=== PATIENT | female | born 1995 | race African-American/Black ===

== ENCOUNTER 2025-11-13 16:51 | Observation (INO) ==
--- NOTE | 2025-11-13 17:15 | ED.PDOC ---
General [facility] ED Provider: Dr. RADHA MATT MD Chief Complaint: Abscess Stated Complaint: Abdominal wall pain. Time Seen by Provider: 11/13/25 17:06 Mode of Arrival: Walk-In Information Source: Patient Exam Limitations: No limitations Nursing and Triage Documentation Reviewed and Agree: Yes Opioid Naive vs. Tolerant What is Opioid Naive?: *Opioid Naive implies the patient is not already taking opioids or not chronically receiving opioids on a daily basis. *PRN dosing is not "usually" associated with tolerance. *Patients are at higher risk of over-sedation and aspiration. What is Opioid Tolerant?: *Opioid Tolerance implies less than the expected response to an opioid. *Acquired tolerance is defined by the patient taking 60mg of oral morphine daily (or equianalgesic dose of another opioid) for 1 week or more. *Often associated with chronic pain. *May take more than usual dose to achieve desired pain control. Skin Complaint Exam Picture Picture: Patient is a 30-year-old female with past medical history of morbid obesity, hypertension and type 2 diabetes who presents with complaint of abdominal wall pain. The patient states that she had a lesion there for couple of weeks now but for the past 3 days its hurting and last night it was draining. Patient denies any fever or chills. The patient states that the pain is about a 10 on a pain scale. Patient denies any nausea, vomiting, diarrhea. On arrival patient's blood pressures are 246/135. Patient denies any headache, dizziness, chest pain or shortness of breath. Patient has been out of her blood pressure medications for at least a month. Patient takes amlodipine 10 mg and nifedipine 60 mg. Review of Systems Review Of Systems Constitutional: Reports No symptoms Eyes: Reports No symptoms Ears, Nose, Mouth, Throat: Reports No symptoms Respiratory: Reports No symptoms Cardiac: Reports No symptoms GI: Reports No symptoms : Reports No symptoms Musculoskeletal: Reports No symptoms Skin: Reports Lesions (Left anterior abdominal wall painful swelling.) Neurological: Reports No symptoms Endocrine: Reports No symptoms Hematologic/Lymphatic: Reports No symptoms All Other Systems: Reviewed and Negative [facility] Medical History (Updated 11/13/25 @ 23:50 by SIXTO MCCLURE RN) Diabetes E11.9 - Type 2 diabetes mellitus without complications (ICD-10) Bronchitis J40 - Bronchitis, not specified as acute or chronic (ICD-10) Hypertension I10 - Essential (primary) hypertension (ICD-10) Family History (Updated 11/13/25 @ 23:51 by SIXTO MCCLURE RN) Mother Cervical cancer Diabetes Hypertension FATHER Cancer Social History (Updated 11/13/25 @ 23:53 by SIXTO MCCLURE RN) Smoking and tobacco status: Former smoker Smoking status stop date: 10/13/25 Alcohol intake: current Alcohol intake frequency: holidays/special occasions only Substance use type: does not use Surgical History (Updated 11/13/25 @ 23:50 by SIXTO MCCLURE RN) History of bilateral fallopian tube excision Z90.79 - Acquired absence of other genital organ(s) (ICD-10) History of skin 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 (ICD-10) History of section Z98.891 - History of uterine scar from previous surgery (ICD-10) Female Reproductive History Menstrual Hx Hysterectomy: No Hx Tubal Ligation: Yes Physical Exam Physical Exam Appearance: Reports Well-appearing, Well-nourished and Obese Ill-appearing: None Pain Distress: Mild Eyes: Reports SONIA, EOMI, Conjunctiva clear and Conjunctiva inflammed ENT: Reports Ears normal, Nose normal and Oropharynx normal Neck: Supple Respiratory: Reports Airway patent, Breath sounds clear and Breath sounds equal; Denies Wheezes or Retractions Cardiovascular: Reports RRR and Pulses normal GI/: Reports Soft, Bowel sounds normal and Tender (Over the left lower quadrant. There is the superficial skin abscess.) Musculoskeletal: Reports Normal strength, ROM intact, No edema and No calf tenderness Skin: Reports Other (There is a 3 x 1.5 cm oval-shaped fluctuant tender lesion in the left anterior abdomen, inferior lateral to the umbilicus. The lesion is raised and tender. The surrounding skin is indurated and erythematous.) Neurological: Reports Sensation intact, Motor intact, Reflexes intact, Cranial nerves intact, Alert, Oriented and Alert to verbal; Denies Unresponsive, Abnormal reflexes, Focal Deficit or CN Palsy Psychiatric: Reports Mood appropriate and Depressed Procedures Incision and Drainage Site: Left anterior abdominal wall, lateral and inferior to the umbilicus Instrument Used: 11 Blade I & D Procedure: Yes Betadine Prep and Sterile dressing applied; No Packing placed Lidocaine Used: Yes Type of Drainage: Present Pus Irrigated: No Was Culture Obtained?: Yes Progress: After cleaning the area with Betadine, under sterile conditions a stab incision was made over the abscess where there was already a small opening. About 4 cc of pus drained. Cultures were sent. Bleeding is well-controlled. Patient tolerated the procedure well and there were no complications. Critical Care Note Critical Care Note Total Critical Care Time (mins): 37 Course Course 11/13/25 17:37 11/13/25 17:37 Orders, Labs, Meds: Lab Review 11/13/25 11/13/25 17:37 18:43 WBC 8.81 RBC 4.40 Hgb 6.6 L* Hct 27.4 L MCV 62.3 L MCH 15.0 L MCHC 24.1 L RDW Coeff of Sushma 20.5 H Plt Count 279 Immature Gran % (Auto) 0.3 Neut % (Auto) 70.7 Lymph % (Auto) 20.5 [place] % (Auto) 6.0 Eos % (Auto) 1.7 Baso % (Auto) 0.8 Reticulocyte % (Auto) 2.11 Neut # (Auto) 6.2 Lymph # (Auto) 1.8 [place] # (Auto) 0.5 Eos # (Auto) 0.2 Baso # (Auto) 0.1 Immature Gran # (Auto) 0.0 Hypochromasia 2+ Anisocytosis 2+ Microcytosis 2+ Absolute Retic 0.0926 Retic Hgb Equivalent 16.2 Sodium 138.2 Potassium 3.88 Chloride 105.5 Carbon Dioxide 24.9 Anion Gap 11.68 BUN 7.7 Creatinine 0.60 Estimated GFR (MDRD) 141.00 BUN/Creatinine Ratio 12.83 Glucose 118.9 H Lactic Acid 0.68 L Calcium 8.93 Iron 18.4 L TIBC 458 % Saturation 4 Ferritin 4.21 L Total Bilirubin 0.27 AST 21.9 ALT 11.8 Alkaline Phosphatase 63.2 Total Protein 7.32 Albumin 3.98 Globulin 3.34 Albumin/Globulin Ratio 1.19 Vitamin B12 289 Folate 6.79 Blood Type AB POSITIVE AB POSITIVE Antibody Screen Negative Crossmatch (AHG) See Detail Orders Category Date Time Status ADMIT OBSERVATION [PLACE PATIENT OBSERVATION] .TO ADMISSION 11/13/25 21:59 Active MEDSURG (MONITORED BED) NPO REMINDER: IMAGING ONCE CARE 11/13/25 19:08 Completed TELEMETRY MONITORING TELE CARE 11/13/25 22:00 Active CBC W/ AUTO DIFF Stat LAB 11/13/25 17:37 Completed CMP [COMPREHENSIVE METABOLIC PANEL] Stat LAB 11/13/25 17:37 Completed CULTURE WOUND [WOUND CULTURE] Stat LAB 11/13/25 17:26 Received FERRITIN Routine LAB 11/13/25 17:37 Completed FOLATE Urgent LAB 11/13/25 17:37 Completed IRON AND TIBC Routine LAB 11/13/25 17:37 Completed LACTIC ACID Stat LAB 11/13/25 17:37 Completed OCCULT BLOOD, STOOL Stat LAB 11/13/25 21:45 Uncollected RBC MORPHOLOGY Stat LAB 11/13/25 17:37 Completed RETIC COUNT Routine LAB 11/13/25 17:37 Completed TYPE AND SCREEN Stat LAB 11/13/25 18:43 Completed VITAMIN B12 Urgent LAB 11/13/25 17:37 Completed Amlodipine Besylate [Norvasc] Meds 11/13/25 17:27 Discontinued 10 mg PO ONCE STA Clonidine HCl [Catapres] Meds 11/13/25 17:15 Discontinued 0.2 mg PO ONCE ONE Iohexol [Omnipaque 350 mg/ml 100Ml] Meds 11/13/25 19:22 Discontinued 100 ml IVP ONCE ONE Ketorolac Tromethamine [Toradol] Meds 11/13/25 21:06 Discontinued 30 mg IVP ONCE STA Lidocaine HCl Inj [Lidocaine 2% 20 ml Mdv] Meds 11/13/25 21:20 Discontinued 20 ml INJ ONCE STA Nifedipine [Procardia Xl] Meds 11/13/25 21:23 Discontinued 60 mg PO ONCE STA CT ABDOMEN/PELVIS W CONTRAST Stat RADS 11/13/25 19:07 Completed Medications Generic Name Dose Route Start Last Admin Trade Name Freq PRN Reason Stop Dose Admin Ferrous Sulfate 324 mg 11/14/25 09:00 Ferrous Sulfate 324 Mg Tablet. PO BID ÁNGELA Cefazolin Sodium/Dextrose 2 gm in 50 mls @ 75 mls/hr 11/13/25 22:10 11/14/25 00:44 Ancef 2 Gm/50 Ml Premix IV 11/16/25 22:09 75 mls/hr Q8HR ÁNGELA Administration Sodium Chloride 1 syr 11/14/25 05:00 11/14/25 05:31 0.9% Sodium Chloride 10 Ml Disp.Syrin IVF Not Given Q8HR ÁNGELA Discontinued Medications Generic Name Dose Route Start Last Admin Trade Name Freq PRN Reason Stop Dose Admin Amlodipine Besylate 10 mg 11/13/25 17:27 11/13/25 17:29 Amlodipine Besylate 5 Mg Tablet PO 11/13/25 17:28 10 mg ONCE STA Administration Clonidine 0.2 mg 11/13/25 17:15 11/13/25 17:24 Clonidine Hcl 0.1 Mg Tablet PO 11/13/25 17:16 0.2 mg ONCE ONE Administration Clindamycin Phosphate 600 mg in 50 mls @ 75 mls/hr 11/13/25 22:20 11/14/25 00:00 Cleocin 600 Mg/50 Ml D5w IV 11/13/25 22:59 75 mls/hr ONCE ONE Administration Iohexol 100 ml 11/13/25 19:22 Iohexol 350 Mg/Ml 100ml IVP 11/13/25 19:23 ONCE ONE Ketorolac Tromethamine 30 mg 11/13/25 21:06 11/13/25 21:28 Ketorolac Tromethamine 30 Mg/Ml Vial IVP 11/13/25 21:07 30 mg ONCE STA Administration Lidocaine HCl 20 ml 11/13/25 21:20 11/13/25 21:28 Lidocaine 2% 20 Ml Mdv INJ 11/13/25 21:21 20 ml ONCE STA Administration Nifedipine 60 mg 11/13/25 21:23 11/13/25 21:30 Nifedipine 30 Mg Tab.Er.24 PO 11/13/25 21:24 60 mg ONCE STA Administration Vital Signs: Temp Pulse Resp BP Pulse Ox 11/13/25 17:01 97.4 F L 96 20 246/135 H 100 Differential diagnosis include but not limited to cellulitis, abscess, sebaceous cyst, contact dermatitis, hernia, allergic reaction. ER course: Patient is a 30-year-old female who presented with complaint of left lower abdominal wall pain. On examination patient was found to have an abscess with surrounding cellulitis. Patient was also found to have elevated blood pressures most likely from her not taking her blood pressure medications. But patient did not have any neurological symptoms or any other symptomatic symptoms from the elevated blood pressures. Patient was administered clonidine 0.2 and amlodipine 10 mg and her blood pressures improved. A CT scan of abdomen and pelvis was done which showed superficial abscess. Bedside I&D was done, cultures were sent. Approximately 4 ml of pus was drained. Patient tolerated the procedure well and there were no complications. Please look at the procedure notes for the details. The patient was also administered clindamycin. Discussed the case with YAZMIN Quijano and the patient was admitted to the hospitalist. Discharge Plan Discharge Patient Disposition: PLACED OBSERVATION Discharge Problem: Uncontrolled hypertension, Cellulitis of left abdominal wall, Abdominal wall abscess Anemia Qualifiers: Anemia type: unspecified type Qualified Code(s): D64.9 - Anemia, unspecified Did you review [place] [employer] for ALL controlled substances?: Not Applicable ED Provider: RADHA MATT Condition: Stable
[2025-11-13] MEDS: CATAPRES PO ONE (17:24)
[2025-11-13] MEDS: NORVASC PO STA (17:29)
[2025-11-13 17:44] LABS: IMMATURE GRANULOCYTE # (AUTO) 0.0 (0.0-1.0); IMMATURE GRANULOCYTE % (AUTO) 0.3 % (0.0-5.0); RDW COEFFICIENT OF VARIATION 20.5 % (11.6-14.8)
[2025-11-13 18:08] LABS: CREATININE 0.6 mg/dL (0.60-1.30)
[2025-11-13] MEDS ORDERED: OMNIPAQUE 350 MG/ML 100ML IVP ONE (19:22)
--- NOTE | 2025-11-13 20:09 | CT ---
CT ABDOMEN AND PELVIS WITH CONTRAST INDICATION: 30-year-old female patient with abdominal wall abscess COMPARISON: None TECHNIQUE: Axial CT from the lung bases to the proximal femurs following intravenous contrast administration. Coronal and sagittal reformatted images were performed. One or more of the following dose reduction techniques were used: Automated exposure control, adjustment of the mA and/or kV according to patient size, use of iterative reconstruction technique. IV Contrast: Administered. Oral Contrast: None. FINDINGS: Hepatomegaly measuring 19.4 cm CC. Lung bases are clear. Cardiac size is within normal limits. No pericardial or pleural effusions. Gallbladder biliary tract are normal. No focal hepatic lesion. Spleen pancreas adrenal glands are normal. No large renal parenchymal abnormalities. No nephrolithiasis. No hydroureteronephrosis. Trace water attenuation fluid in the pelvis likely physiologic. No pneumoperitoneum. The appendix is normal. No small or large bowel obstruction. Portal vein is patent. Celiac trunk superior mesenteric artery main renal arteries inferior mesenteric artery opacify with contrast. No lymphadenopathy. The bones are intact. IMPRESSION: No [id number] process. All CT scans are performed using dose optimization techniques as appropriate to the performed exam and include at least one of the following: Automated exposure control, adjustment of the mA and/or kV according to size, and the use of iterative reconstruction technique.
[2025-11-13] MEDS: TORADOL IVP STA (21:28)
[2025-11-13] MEDS: LIDOCAINE 2% 20 ML MDV INJ STA (21:28)
[2025-11-13] MEDS: PROCARDIA XL PO STA (21:30)
[2025-11-13 21:54] LABS: ABSOLUTE RETICS # 0.0926; RETICULOCYTE % 2.11 %; RETICULOCYTE HEMOGLOBIN 16.2
[2025-11-13 22:07] LABS: % IRON SATURATION 4.0 %
[2025-11-13 23:38] VITALS: BMI 52.2
[2025-11-14] MEDS: CLEOCIN 600 MG/50 ML D5W 600 MG/50 ML BAG IV ONE
[2025-11-14] MEDS: ANCEF 2 GM/50 ML PREMIX 2 GM/50 ML BAG IV SCH (00:44)
[2025-11-14 07:58] VITALS: RESP 18
[2025-11-14] MEDS ORDERED: ZOFRAN SDV IVP PRN (08:32)
[2025-11-14] MEDS: FERROUS SULFATE PO SCH (08:52)
[2025-11-14] MEDS: PROCARDIA XL PO SCH (08:52)
[2025-11-14] MEDS: TYLENOL PO PRN (08:52)
[2025-11-14] MEDS: NORVASC PO SCH (08:52)
[2025-11-14 09:01] LABS: IMMATURE GRANULOCYTE # (AUTO) 0.0 (0.0-1.0); IMMATURE GRANULOCYTE % (AUTO) 0.2 % (0.0-5.0); RDW COEFFICIENT OF VARIATION 26.0 % (11.6-14.8)
[2025-11-14 09:09] LABS: CREATININE 0.6 mg/dL (0.60-1.30)
[2025-11-14 09:58] VITALS: BP 160/102; PULSE 94; TEMP 97.4
--- NOTE | 2025-11-14 11:19 | PCM.SS ---
Provider Provider: CAYLA WOLFE PA-C, [facility] Admission Date Admission Date: 11/13/25 Discharge Date Discharge Date: 11/14/25 Chief Complaint Reason For Visit: ANEMIA CELLULITIS AND ABSESS OF AUTERIOR ABD WALL History of Present Illness History of Present Illness: Admitted 11/13/25 22:04, this 30 year old AA/BLACK/F with past medical history of hypertension who presents to the ER with left lower abdominal abscess. Patient states the same area has become inflamed and flared up over the the last several months. It gets better and then it comes back. It has opened up and drained. CT abdomen pelvis was negative for any acute findings in regards to cellulitis or abscess. ER provider did I&D at with some drainage expressed. She was also noted to have hemoglobin of 6.6. She states she is unaware of having anemia this bad. She has not had a child in 5 years. She does have very heavy periods that last about 2 weeks each. She is not currently on any control. She denies any bloody stools. Patient given 2 units of packed RBCs overnight. Admitted to [facility]. Repeat labs this morning show improved hemoglobin at 9.5. Patient is feeling better. Iron level is low at 18. Will start iron supplementation, discussed that can cause constipation. Advised that she needs to follow-up with [facility] as soon as possible to discuss her options in regards to control. She states that she has been on the Depo shot in the past. Discussed that she may be a candidate for an ablation as well if her periods are severe enough to be causing her acute anemia. The area of her left lower abdomen is improved. No induration or significant drainage. Culture showing no growth so far. She denies a history of MRSA. She denies any history of other lesions in her groin or armpits. Blood pressure is improved and she states she has been out of her medications in regards to that. She has amlodipine and nifedipine on her list. Will discharge home on doxycycline for 7 days and refill her amlodipine to restart. Will also give her a prescription for iron supplement. Follow-up with PCP. Patient agrees to plan of care. [facility] Medical History Diabetes E11.9 - Type 2 diabetes mellitus without complications (ICD-10) Bronchitis J40 - Bronchitis, not specified as acute or chronic (ICD-10) Hypertension I10 - Essential (primary) hypertension (ICD-10) Surgical History History of bilateral fallopian tube excision Z90.79 - Acquired absence of other genital organ(s) (ICD-10) History of skin 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 (ICD-10) History of section Z98.891 - History of uterine scar from previous surgery (ICD-10) Family History Mother Cervical cancer Diabetes Hypertension FATHER Cancer Social History Smoking and tobacco status: Former smoker Smoking status stop date: 10/13/25 Alcohol intake: current Alcohol intake frequency: holidays/special occasions only Substance use type: does not use Medications Mecications: Medications at Discharge (Home Meds & RX) amlodipine 10 mg tablet (Norvasc) 10 mg PO DAILY 11/13/25 dulaglutide 4.5 mg/0.5 mL subcutaneous pen injector (Trulicity) 4.5 mg subcut WEEKLY 11/13/25 nifedipine 60 mg tablet,extended release 60 mg PO DAILY 11/13/25 Allergies Allergies Allergy/AdvReac Type Severity Reaction Status Date / Time No Known Allergies Allergy Verified 11/13/25 17:04 Review of Systems Constitutional: Denies Fever Head: Reports Normocephalic and Atraumatic Cardiovascular: Denies Chest pain, Chest Pressure or Edema Respiratory: Denies Cough or Shortness of air Gastrointestinal: Reports Abdominal pain; Denies Nausea, Vomiting, Diarrhea, He matemesis, Hematochezia, Black Tarry Stools or Melena Genitourinary: Denies Dysuria or Frequency Dermatologic: Reports Other (+ABSCESS TO LEFT LOWER ABD) Physical Examination Appearance: Positive No Apparent Distress, Alert and Oriented x3 and Obese Head: Positive Normocephalic and Atraumatic Neck: Positive Supple and Trachea Midline Heart: Positive RRR Respiratory: Positive Breath Sounds Clear, Bilaterally, Breath Sounds Equal and Respirations Nonlabored; Negative Crackles, Rhonchi or Wheezes GI/: Positive Soft, Nontender, Bowel sounds normal and No Distention Extremities: Negative Edema Neurological: Positive Cranial nerves intact, Alert and Oriented Psychiatric: Positive Normal Judgement, Normal Insight, Affect Appropriate and Mood Appropriate Additional Findings: LEFT LOWER ABD - SMALL OPEN AREA, MINIMAL DRAINAGE, MINIMAL ERYTHEMA SURROUNDING IT, NO INDURATION OR FLUCTUANCE. Vital Signs (Last 4 Hours) Vital Signs Last 4 Hours: Vital Signs: Last 4 Hours 11/14/25 07:40 11/14/25 08:00 11/14/25 08:33 Temperature 97.6 F 97.6 F Temperature Source Pulse Rate 96 93 Respiratory Rate 18 18 Blood Pressure 170/120 H 173/118 H Blood Pressure Mean 136 136 Blood Pressure Location Blood Pressure Position O2 Sat by Pulse Oximetry Oxygen Delivery Method Room Air 11/14/25 09:00 11/14/25 09:58 11/14/25 09:58 Temperature 97.4 F L Temperature Source Temporal Artery Scan Pulse Rate 94 Respiratory Rate Blood Pressure 160/102 H Blood Pressure Mean 121 Blood Pressure Location Left Arm Blood Pressure Position Supine O2 Sat by Pulse Oximetry 99 Oxygen Delivery Method Room Air Room Air Room Air 11/14/25 11:00 Temperature Temperature Source Pulse Rate Respiratory Rate Blood Pressure Blood Pressure Mean Blood Pressure Location Blood Pressure Position O2 Sat by Pulse Oximetry Oxygen Delivery Method Room Air Labs This Visit Labs This Visit: Labs This Visit 11/13/25 11/13/25 11/14/25 17:37 18:43 08:50 WBC 8.81 RBC 4.40 Hgb 6.6 L* Hct 27.4 L MCV 62.3 L MCH 15.0 L MCHC 24.1 L RDW Coeff of Sushma 20.5 H Plt Count 279 Immature Gran % (Auto) 0.3 Neut % (Auto) 70.7 Lymph % (Auto) 20.5 [place] % (Auto) 6.0 Eos % (Auto) 1.7 Baso % (Auto) 0.8 Reticulocyte % (Auto) 2.11 Neut # (Auto) 6.2 Lymph # (Auto) 1.8 [place] # (Auto) 0.5 Eos # (Auto) 0.2 Baso # (Auto) 0.1 Immature Gran # (Auto) 0.0 Plt Morphology Comment Hypochromasia 2+ Poikilocytosis Anisocytosis 2+ Microcytosis 2+ Absolute Retic 0.0926 Retic Hgb Equivalent 16.2 Sodium 138.2 Potassium 3.88 Chloride 105.5 Carbon Dioxide 24.9 Anion Gap 11.68 BUN 7.7 Creatinine 0.60 Estimated GFR (MDRD) 141.00 BUN/Creatinine Ratio 12.83 Glucose 118.9 H Hemoglobin A1c 5.96 Lactic Acid 0.68 L Calcium 8.93 Iron 18.4 L TIBC 458 % Saturation 4 Ferritin 4.21 L Total Bilirubin 0.27 AST 21.9 ALT 11.8 Alkaline Phosphatase 63.2 Total Protein 7.32 Albumin 3.98 Globulin 3.34 Albumin/Globulin Ratio 1.19 Vitamin B12 289 Folate 6.79 Blood Type AB POSITIVE AB POSITIVE Antibody Screen Negative Crossmatch ([facility]) See Detail 11/14/25 08:55 WBC 8.09 RBC 5.06 Hgb 9.5 L Hct 32.7 L MCV 64.6 L MCH 18.8 L MCHC 29.1 L D RDW Coeff of Sushma 26.0 H Plt Count 236 Immature Gran % (Auto) 0.2 Neut % (Auto) 69.6 Lymph % (Auto) 21.5 [place] % (Auto) 5.8 Eos % (Auto) 2.7 Baso % (Auto) 0.2 Reticulocyte % (Auto) Neut # (Auto) 5.6 Lymph # (Auto) 1.7 [place] # (Auto) 0.5 Eos # (Auto) 0.2 Baso # (Auto) 0.0 Immature Gran # (Auto) 0.0 Plt Morphology Comment Hypochromasia 2+ Poikilocytosis 2+ Anisocytosis 3+ Microcytosis 3+ Absolute Retic Retic Hgb Equivalent Sodium 135.1 Potassium 4.13 Chloride 100.2 Carbon Dioxide 25.8 Anion Gap 13.23 BUN 8.2 Creatinine 0.60 Estimated GFR (MDRD) 141.00 BUN/Creatinine Ratio 13.66 Glucose 206.9 H D Hemoglobin A1c Lactic Acid Calcium 9.38 Iron TIBC % Saturation Ferritin Total Bilirubin 0.44 AST 24.1 ALT 13.4 Alkaline Phosphatase 63.7 Total Protein 7.63 Albumin 4.12 Globulin 3.51 Albumin/Globulin Ratio 1.17 Vitamin B12 Folate Blood Type Antibody Screen Crossmatch ([facility]) Microbiology This Visit 11/13/25 17:26 Abdomen Wound Culture - Preliminary Imaging Imaging: CT ABDOMEN AND PELVIS WITH CONTRAST INDICATION: 30-year-old female patient with abdominal wall abscess COMPARISON: None TECHNIQUE: Axial CT from the lung bases to the proximal femurs following intravenous contrast administration. Coronal and sagittal reformatted images were performed. One or more of the following dose reduction techniques were used: Automated exposure control, adjustment of the mA and/or kV according to patient size, use of iterative reconstruction technique. IV Contrast: Administered. Oral Contrast: None. FINDINGS: Hepatomegaly measuring 19.4 cm CC. Lung bases are clear. Cardiac size is within normal limits. No pericardial or pleural effusions. Gallbladder biliary tract are normal. No focal hepatic lesion. Spleen pancreas adrenal glands are normal. No large renal parenchymal abnormalities. No nephrolithiasis. No hydroureteronephrosis. Trace water attenuation fluid in the pelvis likely physiologic. No pneumoperitoneum. The appendix is normal. No small or large bowel obstruction. Portal vein is patent. Celiac trunk superior mesenteric artery main renal arteries inferior mesenteric artery opacify with contrast. No lymphadenopathy. The bones are intact. IMPRESSION: No [id number] process. Review Review Statement: I have independently reviewed and interpreted the labs/EKGs/imaging that were ordered by the ER provider. I have reviewed all outside records that are available currently in our EMR including imaging/notes/labs from previous visits. Plan Reccomendations/Plan: 1. Acute anemia - iron low, reports heavy periods that last 2 weeks each month, discussed f/u with pcp and/or obgyn to discuss treatment options 2. Lower abdominal abscess with mild cellulitis - culture showing no growth. No hx of MRSA to her knowledge. Cefazolin orderd. Will dc on doxy. 3. Hypertension, uncontrolled, chronic - Pt has been out of her home meds, will restart amlodipine Repeat labs this morning show improved hemoglobin at 9.5. Patient is feeling better. Iron level is low at 18. Will start iron supplementation, discussed that can cause constipation. Advised that she needs to follow-up with [facility] [employer] as soon as possible to discuss her options in regards to control. She states that she has been on the Depo shot in the past. Discussed that she may be a candidate for an ablation as well if her periods are severe enough to be causing her acute anemia. The area of her left lower abdomen is improved. No induration or significant drainage. Culture showing no growth so far. She denies a history of MRSA. She denies any history of other lesions in her groin or armpits. Blood pressure is improved and she states she has been out of her medications in regards to that. She has amlodipine and nifedipine on her list. Will discharge home on doxycycline for 7 days and refill her amlodipine to restart. Will also give her a prescription for iron supplement. Follow-up with PCP. Patient agrees to plan of care. 1. Acute iron deficiency anemia 2. Lower abdominal abscess with mild cellulitis, improved 3. Hypertension, improved Additional Planning: Case discussed with ED Physician, Dr. Garvey. DVT Prophylaxis: Ambulation [facility] Plannin minutes spent discussing advance care planning. Admit to: Obs Discussed Plan of Care with Dr. Ashok Epps. Review With Patient Reviewed with Patient and Family: Patient and family have been counseled on condition and care plan and have no immediate questions. I have personally discussed and reviewed the patient's visit/current labs/imaging/decision making with Dr. Ashok Epps, my supervising attending. Total number of minutes spent with patient [85] min. More than 50% of the time spent with this patient was devoted to counseling and coordination of care. Time of Admission:11/13/25 22:04 Time of Discharge: 11/14/25 0845 Discharge Plan Discharge Discharge Orders: Discharge Patient (ONCE); Ordered 11/14/25 Ordered By: CAYLA WOLFE Activity Restrictions/Additional Instructions: DISCHARGE TO HOME FOLLOW UP WITH A PCP AND OBGYN FOR MENSTRUAL BLEEDING PHARMACY: [facility], TAKE IRON SUPPLEMENT IRON MAY CONSTIPATE YOU DIAGNOSIS: IRON DEFICIENCY ANEMIA, ABDOMINAL ABSCESS Care Plan Goals: Keep wound clean and dry. Use antibacterial soap and cover with dressing I supplied. Patient Disposition: HOME SELF-CARE Prescriptions: New ferrous sulfate 324 mg (65 mg iron) Tablet,Delayed Release (Dr/Ec) 324 mg PO BID Qty: 60 0RF doxycycline monohydrate 100 mg capsule 100 mg PO BID Qty: 14 0RF Continued Trulicity 4.5 mg/0.5 mL pen injector 4.5 mg subcut WEEKLY amlodipine [Norvasc] 10 mg tablet 10 mg PO DAILY Qty: 30 0RF Discontinued nifedipine 60 mg tablet extended release 60 mg PO DAILY Did you review [place] [employer] for ALL controlled substances?: Not Applicable Discussed opioids are addictive and Narcan is available by prescription or from pharmacy.: No Condition: Stable Referrals: DEZ CHOWDARY MD [STAFF PHYSICIAN, Family Practice] - 11/21/25 10:00 am
== END 2025-11-14 13:00 | disposition home or self-care (01) ==
LOC: ED 16:51 → MEDSURG B 16:51
PROVIDERS: ADMIT Hospitalist; ATTEND Physician Assistant